=== PATIENT | male | born 1965 | race Caucasian/White ===

== ENCOUNTER → 2024-05-13 | Day surgery (SDC) | payer MEDICARE, OTHER ==
[~2024-05-13] MED LIST: LIDOCAINE HCL 2% LOCAL INJ 5 ML SDV VIAL INJ ONE; MIDAZOLAM HCL 2 MG/2 ML VIAL ONE; PROPOFOL IV EMULSION 10 MG/ML 20 ML VIAL ONE
[2024-05-13 14:07] VITALS: BP 156/88; PULSE 82; RESP 18; O2SAT 98
== END | disposition home or self-care (01) ==
LOC: OR 10:53 → EDSEX 12:30
PROVIDERS: ATTEND Internal Medicine Gastroenterology
DX: Z12.11 Encounter for screening for malignant neoplasm of colon (principal); D12.0 Benign neoplasm of cecum; D12.3 Benign neoplasm of transverse colon; D12.4 Benign neoplasm of descending colon; K64.8 Other hemorrhoids; E66.9 Obesity, unspecified; R03.0 Elevated blood-pressure reading, without diagnosis of hypertension; R62.50 Unspecified lack of expected normal physiological development in childhood; Z01.810 Encounter for preprocedural cardiovascular examination; Z68.34 Body mass index [BMI] 34.0-34.9, adult; Z80.0 Family history of malignant neoplasm of digestive organs
CPT/HCPCS: 45384; 88305; 93005; J2003; J2250; J2704; 45378